=== PATIENT | male | born 1945 | race Two or more races ===

== ENCOUNTER 2019-05-06 13:24 | Inpatient (IN) | payer OTHER ==
[~2019-05-06] VITALS: Ht 30.5 cm; Wt 5.0 kg
[2019-05-06] MEDS ORDERED: TAMS0.4C (14:20)
[2019-05-06] MEDS ORDERED: COZAAR100 MG PO (14:20)
[2019-05-06] MEDS ORDERED: FUSION PLUS CA1 EACH (14:20)
[2019-05-06] MEDS ORDERED: URECHOLINE50 MG PO (14:20)
[2019-05-06] MEDS ORDERED: MEGESTROL ACETA40 MG (14:21)
[2019-05-06] MEDS ORDERED: FOLIC ACID0.8 M1 PO (14:21)
[2019-05-06] MEDS ORDERED: ZANAFLEX4 M1 PO (14:21)
[2019-05-06] MEDS ORDERED: DURAGESIC1 EAC1 TOP (14:22)
--- NOTE | 2019-05-06 14:28 | NUR ---
SE RECIBE PACIENTE ALERTA Y ORIENTADO EN LAS BARRY ESFERAS, EL MISMO INDICA CHATTERJEE MEDICO LO REFIRIO POR HEMOGLOBINA BAJA. SE PRESENTA A . SE UBICA PACIENTE EN MELISA SEC K-3.
--- NOTE | 2019-05-06 17:54 | NUR ---
SE ORIENTA PTE SOBRE TX MEDICO EL CUAL REFIERE ENTENDER.SE LE EXTRAEN MUESTRAS,SE CANALIZA BAJO MEDIDAS ASEPTICAS Y SE ADMINISTRA MEDICAMENTO KASHIF ORDEN MEDICAS,SE LE LYDIA TUBOS PILOTOS PARA 2 UNIDADES PRBC EN HOLD Y SE LLEVAN A BANCO DE VIOLET APCH.
--- NOTE | 2019-05-06 18:30 | NUR ---
NO SE REALIZO CULTIVO DEL AREA DEL [facility] P[facility]QUE NO ESTA SUPURANDO EN EL AREA Y SE HABLO CON DR. EASON EL CUAL REFIRIO QUE SOLO QUERIA CULTIVO DE VIOLET.
--- NOTE | 2019-05-06 23:28 | NUR ---
SE RECIBE PTE MASCULINO DE 74YRS ALERTA CONCIENTE Y TRANQUILO EN CAMA CON BARABADAS ELEVADA. PTE EN ESPERA DE MEDICO CONSULTOR. SE MANTIENE BAJO OBSERVACION POR CAMBIOS.
--- NOTE | 2019-05-07 07:05 | NUR ---
SE RECIBE DE TURNO ANTERIOR MASCULINO DE 74 ANOS,EN COMPANIA DE FAMILIAR. UBICADO EN MELISA K-3. PACIENTE ALERTA,ORIENTADO EN SEBASTIAN BARRY ESFERAS,DESCANSANDO EN CAMA NIVEL MAS BAJO,CAO DE IDENTIFICACION COLOCADOS POR SEGURIDAD. SE OBSERVA CON BUEN PATRON RESPIRATORIO.AREA DE VENOPUNCION LIMPIA,SECA,ANDREW DE S/S EDEMA Y/O ERITEMA. RECIBIENDO 0.9% NSS 1,000 ML @ 125ML/HR. PENDIENTE CONSULTA CON INTERNISTA .PACIENTE TIENE REALIZADO TYPE AND CROSS,PARA TRANSFUNDIR DOS UNIDADES DE PRBC LAS CUALES ESTAN EN HOLD.
== END 2019-05-09 16:03 | disposition home or self-care (01) | DRG 375 ==
LOC: ER 13:24 → SEC-K 05-07 09:45 → MEDI 05-07 16:20 → MEDJ 05-08 16:38
PROVIDERS: ADMIT Internal Medicine
PROC: BB24YZZ Computerized Tomography (CT Scan) of Bilateral Lungs using Other Contrast (ICD-10-PCS; principal; 2019-05-07)
PROC: BW21Y0Z Computerized Tomography (CT Scan) of Abdomen and Pelvis using Other Contrast, Unenhanced and Enhanced (ICD-10-PCS; 2019-05-07)
PROC: 30233N1 Transfusion of Nonautologous Red Blood Cells into Peripheral Vein, Percutaneous Approach (ICD-10-PCS; 2019-05-07)
PROC: 8E0ZXY6 Isolation (ICD-10-PCS; 2019-05-08)
DX: C18.8 Malignant neoplasm of overlapping sites of colon (principal); C78.7 Secondary malignant neoplasm of liver and intrahepatic bile duct; R65.10 Systemic inflammatory response syndrome (SIRS) of non-infectious origin without acute organ dysfunction; C78.02 Secondary malignant neoplasm of left lung; C78.01 Secondary malignant neoplasm of right lung; R18.8 Other ascites; D64.81 Anemia due to antineoplastic chemotherapy; D63.0 Anemia in neoplastic disease; D72.828 Other elevated white blood cell count; N40.0 Benign prostatic hyperplasia without lower urinary tract symptoms; I10 Essential (primary) hypertension

== ENCOUNTER 2019-07-11 21:51 | Inpatient (IN) | payer OTHER ==
[~2019-07-11] VITALS: Ht 172.7 cm; Wt 69.4 kg
[~2019-07-11 21:51] MED LIST: COZAAR100 MG PO; DURAGESIC1 EAC1 TOP; FOLIC ACID0.8 M1 PO; FUSION PLUS CA1 EACH; MEGESTROL ACETA40 MG; TAMS0.4C; URECHOLINE50 MG PO; ZANAFLEX4 M1 PO
[2019-07-11] MEDS ORDERED: LASIX20 MG (22:06)
== END 2019-07-16 21:24 | disposition expired | DRG 689 ==
LOC: ER 21:51 → MEDJ 07-12 11:41 → SEC-K 07-12 11:41 → MEDJ 07-12 13:31
PROVIDERS: ADMIT Internal Medicine
PROC: 8E0ZXY6 Isolation (ICD-10-PCS; principal; 2019-07-12)
PROC: 0BH17EZ Insertion of Endotracheal Airway into Trachea, Via Natural or Artificial Opening (ICD-10-PCS; 2019-07-12)
DX: N39.0 Urinary tract infection, site not specified (principal); A41.9 Sepsis, unspecified organism; C18.8 Malignant neoplasm of overlapping sites of colon; C78.7 Secondary malignant neoplasm of liver and intrahepatic bile duct; C78.02 Secondary malignant neoplasm of left lung; C78.01 Secondary malignant neoplasm of right lung; E87.1 Hypo-osmolality and hyponatremia; R65.10 Systemic inflammatory response syndrome (SIRS) of non-infectious origin without acute organ dysfunction; R63.0 Anorexia; E87.5 Hyperkalemia; D72.828 Other elevated white blood cell count; D63.0 Anemia in neoplastic disease; N40.0 Benign prostatic hyperplasia without lower urinary tract symptoms; I10 Essential (primary) hypertension; K72.90 Hepatic failure, unspecified without coma; I46.9 Cardiac arrest, cause unspecified